=== PATIENT | female | born 1975 | race Caucasian/White ===

== ENCOUNTER → 2016-05-01 | Outpatient (CLI) | payer BC ==
--- NOTE | 2016-05-01 10:20 | REPMRS ---
Patient History The patient states she had a clinical breast exam in Family history of breast cancer in 3 paternal aunts, breast cancer in maternal aunt, and breast cancer in paternal grandmother. Benign excisional biopsy of the left breast, 2001. Benign excisional biopsy of the right breast, 2001. Digital Woman Screen Mammo: May 01, 2016 - Exam #: [id number] Bilateral CC and MLO view(s) were taken. Technologist: Dotty Singh, Technologist No prior studies available for comparison. FINDINGS: The breast tissue is heterogeneously dense. This may lower the sensitivity of mammography. The visualized implant margins are smooth. Breast parenchymal density pattern is essentially symmetric. No dominant mass, clustered microcalcification, or archetectural distortion is evident on either side. ASSESSMENT: BI-RADS/ACR category 2 mammogram. Benign finding(s). Recommendation Routine screening mammogram of both breasts in 1 year (for women over age 40). Electronically Signed By: Lonnie De Jesus MD 05/01/16 8213
== END ==
LOC: M WHC 07:44
PROVIDERS: ATTEND Advanced Practice Midwife
DX: Z12.31 Encounter for screening mammogram for malignant neoplasm of breast (principal); Z80.3 Family history of malignant neoplasm of breast

== ENCOUNTER → 2016-05-02 | Outpatient (CLI) | payer BC ==
[2016-05-02 13:14] LABS: ANION GAP 5 MEQ/L (8-16); BLOOD UREA NITROGEN 7 MG/DL (7-18); CALCIUM LEVEL 9.9 MG/DL (8.5-10.1); CARBON DIOXIDE LEVEL 32 MEQ/L (21-32); CHLORIDE LEVEL 104 MEQ/L (98-107); CREATININE FOR GFR 0.87 MG/DL (0.55-1.02); GLOMERULAR FILTRATION RATE > 60.0 (>58); GLUCOSE, FASTING 131 MG/DL (70-105); SODIUM LEVEL 141 MEQ/L (136-145)
[2016-05-02 13:15] LABS: FOLATE > 24.0 NG/ML (>5.4); POTASSIUM SERUM 5.8 MEQ/L (3.5-5.1); VITAMIN B12 LEVEL 667 PG/ML (247-911)
== END ==
LOC: M WUC 08:59
PROVIDERS: ATTEND Physician Assistant Medical
DX: D64.9 Anemia, unspecified (principal); I10 Essential (primary) hypertension

== ENCOUNTER → 2016-05-20 | Outpatient (CLI) | payer BC ==
[2016-05-20 20:31] LABS: ANION GAP 7 MEQ/L (8-16); BLOOD UREA NITROGEN 9 MG/DL (7-18); CALCIUM LEVEL 9.7 MG/DL (8.5-10.1); CARBON DIOXIDE LEVEL 29 MEQ/L (21-32); CHLORIDE LEVEL 106 MEQ/L (98-107); CREATININE FOR GFR 0.77 MG/DL (0.55-1.02); GLOMERULAR FILTRATION RATE > 60.0 (>58); GLUCOSE, FASTING 97 MG/DL (70-105); POTASSIUM SERUM 4.8 MEQ/L (3.5-5.1); SODIUM LEVEL 142 MEQ/L (136-145)
== END ==
LOC: M WUC 17:20
PROVIDERS: ATTEND Physician Assistant Medical
DX: R00.0 Tachycardia, unspecified (principal)

== ENCOUNTER → 2016-10-04 | Outpatient (CLI) | payer BC, OTHER ==
[2016-10-04 19:49] LABS: BASO # 0.1 K/mm3 (0.0-0.2); EOS # 0.2 K/mm3 (0.0-0.50); EOS % 2.5 % (0.0-3.0); LARGE UNSTAINED CELL # 0.1 K/mm3 (0.0-0.4); LARGE UNSTAINED CELL % 1.8 % (0.0-4.0); LYMPH # 0.8 K/mm3 (1.5-4.5); LYMPH % 10.1 % (24.0-44.0); MEAN CORPUSCULAR HEMOGLOBIN 36.3 pg (27.0-33.0); MEAN CORPUSCULAR HGB CONC 34.6 g/dl (32.0-36.5); MEAN CORPUSCULAR VOLUME 104.9 fl (80.0-96.0); MONO # 0.5 K/mm3 (0.0-0.8); NEUTROPHILS # 5.9 K/mm3 (1.8-7.7); NEUTROPHILS % 77.5 % (36.0-66.0); PLATELET COUNT, AUTOMATED 365 k/mm3 (150-450); RED CELL DISTRIBUTION WIDTH 11.7 % (11.5-14.5); WHITE BLOOD COUNT 7.7 K/mm3 (4.0-10.0)
[2016-10-04 20:03] LABS: ALBUMIN 3.9 GM/DL (3.2-5.2); ALBUMIN/GLOBULIN RATIO 1.39 (1.00-1.93); ALKALINE PHOSPHATASE 84 U/L (45-117); ALT/SGPT 29 U/L (12-78); ANION GAP 6 MEQ/L (8-16); AST/SGOT 31 U/L (15-37); BILIRUBIN,TOTAL 0.6 MG/DL (0.2-1.0); BLOOD UREA NITROGEN 8 MG/DL (7-18); CARBON DIOXIDE LEVEL 28 MEQ/L (21-32); CHLORIDE LEVEL 105 MEQ/L (98-107); CREATININE FOR GFR 0.75 MG/DL (0.55-1.02); GLOMERULAR FILTRATION RATE > 60.0 (>58); GLUCOSE, FASTING 86 MG/DL (70-105); POTASSIUM SERUM 4.5 MEQ/L (3.5-5.1); SODIUM LEVEL 139 MEQ/L (136-145); TOTAL PROTEIN 6.7 GM/DL (6.4-8.2)
--- NOTE | 2016-10-05 09:58 | REP ---
AP PELVIS: 10/04/2016. Clinical history: Right posterior buttock injury. Evaluate for any bony abnormality. Findings: No comparison. Pelvic ring intact. SI joints, sacral ala and foramina symmetric and normal. Interbody cages at the L5-S1 level are noted. Sclerosis around them suggest they may have been present for awhile. There is slight disc space narrowing on the left with rim osteophytes at both femoral heads, larger left than right. Sclerosis acetabular roof with subchondral cyst on the left. Pubic rami, symphysis pubis and iliac wings intact. There is no evidence of fracture or destructive lesion of the hips. Impression: 1. Some degenerative changes of the hips, left greater than right and with prior lumbar fusion at L5-S1 with interbody cages. No visible fracture. Signed by Migue Loco MD 10/05/2016 05:55 P
== END ==
LOC: M WUC 15:35 → MERGE 15:35
PROVIDERS: ATTEND Physician Assistant
DX: S70.01XA Contusion of right hip, initial encounter (principal); R60.0 Localized edema; X58.XXXA Exposure to other specified factors, initial encounter; Y93.9 Activity, unspecified; Y92.9 Unspecified place or not applicable; Y99.8 Other external cause status; Z98.1 Arthrodesis status

== ENCOUNTER → 2016-12-10 | Outpatient (REF) | payer OTHER | LOC: M LAB REF 17:07 | PROVIDERS: ATTEND Obstetrics & Gynecology | DX: Z12.4 Encounter for screening for malignant neoplasm of cervix (principal); R87.612 Low grade squamous intraepithelial lesion on cytologic smear of cervix (LGSIL) ==

== ENCOUNTER → 2016-12-16 | Outpatient (CLI) | payer BC ==
--- NOTE | 2016-12-17 07:49 | REP ---
Clinical: Pelvic pain and abnormal uterine bleeding . Technique: Transabdominal pelvic ultrasound followed by transvaginal examination for better evaluation of the endometrium and adnexa with color Doppler evaluation of the ovaries. Findings: Bladder is unremarkable and measures 13.3 x 11.7 x 7.0 cm. Normal retroflexed uterus measures 8.0 x 4.9 x 5.7 cm . The endometrial complex measures 8.4 mm thickness. No discrete uterine or endometrial abnormalities are appreciated. Bilateral ovaries are normal in appearance and vascularity without evidence for torsion. Right ovary measures 2.8 x 2.3 x 2.2 cm ; R I = 0.59 . Left ovary measures 3.0 x 1.6 x 1.5 cm ; R I = 0.52 . No pelvic fluid or adnexal mass lesion . Impression: 1. Normal pelvic ultrasound. Retroflexed uterus. Signed by Cesar Hansen MD 12/17/2016 07:39 A
== END ==
LOC: M SMT 14:22
PROVIDERS: ATTEND Obstetrics & Gynecology
DX: R10.2 Pelvic and perineal pain (principal); N92.1 Excessive and frequent menstruation with irregular cycle; N85.4 Malposition of uterus

== ENCOUNTER → 2017-01-15 | Outpatient (REF) | payer OTHER | LOC: M LAB REF 14:48 | PROVIDERS: ATTEND Obstetrics & Gynecology | DX: N92.0 Excessive and frequent menstruation with regular cycle (principal); N87.0 Mild cervical dysplasia ==

== ENCOUNTER 2017-03-06 05:43 | Day surgery (SDC) | payer BC, OTHER ==
[2017-03-06] MEDS ORDERED: LIDOCAINE 1% MDV 20ML VIAL SQ (06:00)
[2017-03-06 06:26] LABS: HEMATOCRIT 44.6 % (36.0-47.0); HEMOGLOBIN 15.3 g/dl (12.0-16.0); MEAN CORPUSCULAR HEMOGLOBIN 35.1 pg (27.0-33.0); MEAN CORPUSCULAR HGB CONC 34.3 g/dl (32.0-36.5); MEAN CORPUSCULAR VOLUME 102.3 fl (80.0-96.0); PLATELET COUNT, AUTOMATED 314 10^3/uL (150-450); RED BLOOD COUNT 4.36 10^6/uL (4.00-5.40); RED CELL DISTRIBUTION WIDTH 12.3 % (11.5-14.5); WHITE BLOOD COUNT 5.7 10^3/uL (4.0-10.0)
[2017-03-06] MEDS: LR 1,000 ML IV ×4 (06:28→18:15)
[2017-03-06 06:42] LABS: CONTROL LINE HCG INT CTR LINE PRESENT; HCG, SERUM QUALITATIVE NEGATIVE (NEGATIVE)
[2017-03-06] MEDS ORDERED: ROCURONIUM BROMIDE 50 MG/5 ML VIAL As Ordered ×2 (07:13→08:23)
[2017-03-06] MEDS ORDERED: fentaNYL 250 MCG/5 ML INJECTION (J3010) As Ordered (07:13)
[2017-03-06] MEDS ORDERED: MIDAZOLAM INJ 2 MG/2 ML VIAL (J2250) As Ordered (07:13)
[2017-03-06] MEDS ORDERED: LIDOCAINE 2% INJ 100 MG/5 ML SDV (FOR ANES.) As Ordered (07:13)
[2017-03-06] MEDS ORDERED: PROPOFOL 200 MG/20 ML VIAL As Ordered (07:13)
[2017-03-06] MEDS ORDERED: ePHEDrine SULFATE 25 MG/5 ML(5MG/ML) SYRINGE As Ordered (07:58)
[2017-03-06] MEDS ORDERED: dexameTHASONE 4 MG/ML 1ML VIAL (J1100) As Ordered (08:00)
[2017-03-06] MEDS: BUPIVACAINE HCL 0.25% 30 ML VIAL As Ordered (08:05)
[2017-03-06] MEDS ORDERED: GLYCOPYRROLATE INJ 0.2 MG/ML 2 ML VIAL As Ordered ×2 (08:06)
[2017-03-06] MEDS ORDERED: NEOSTIGMINE 10 MG/10 ML VIAL (J2710) As Ordered (08:06)
[2017-03-06] MEDS ORDERED: ONDANSETRON 4MG/2ML VIAL (J2405) As Ordered (08:07)
[2017-03-06] MEDS ORDERED: METOCLOPRAMIDE INJ 10MG/2ML VIAL (J2765) As Ordered (08:07)
[2017-03-06] MEDS ORDERED: KETOROLAC 60 MG/2 ML VIAL (J1885) As Ordered (08:07)
[2017-03-06] MEDS ORDERED: MORPHINE 10 MG/ML 1ML VIAL As Ordered (08:50)
[2017-03-06] MEDS: METHYLENE BLUE 0.5% (5MG/ML) 10 ML AMP (PROVAYBLUE)(Q9968 PER 1MG) As Ordered (09:55)
[2017-03-06] MEDS ORDERED: fentaNYL 100 MCG/2 ML INJECTION (J3010) IV (10:15)
[2017-03-06] MEDS ORDERED: PERCOCET 5MG/325MG TAB PO ×2 (10:15)
[2017-03-06] MEDS ORDERED: HYDROmorphone HCL 1 MG/ML SYRINGE (J1170) IV (10:15)
[2017-03-06] MEDS ORDERED: zolPIDEM TARTRATE 10MG TAB PO (10:15)
[2017-03-06] MEDS ORDERED: ONDANSETRON 4MG/2ML VIAL (J2405) IV (10:15)
[2017-03-06] MEDS: PERCOCET 5MG/325MG TAB PO ×3 (12:16→21:37)
[2017-03-06] MEDS: PROMETHAZINE INJ 25 MG/ML VIAL (J2550) IV (13:17)
[2017-03-06] MEDS: KETOROLAC 30 MG/ML VIAL (J1885) IV ×2 (14:56→21:37)
[2017-03-06] MEDS: MORPHINE 4 MG/ML 1ML SYRINGE IV ×2 (14:57→19:32)
[2017-03-07] MEDS: zolPIDEM TARTRATE 5 MG TAB PO (00:17)
[2017-03-07] MEDS: LR 1,000 ML IV ×2 (02:15→10:31)
[2017-03-07] MEDS: KETOROLAC 30 MG/ML VIAL (J1885) IV ×2 (03:53→09:07)
[2017-03-07 06:26] LABS: HEMATOCRIT 31.5 % (36.0-47.0); MEAN CORPUSCULAR HEMOGLOBIN 35.4 pg (27.0-33.0); MEAN CORPUSCULAR HGB CONC 33.3 g/dl (32.0-36.5); MEAN CORPUSCULAR VOLUME 106.1 fl (80.0-96.0); PLATELET COUNT, AUTOMATED 210 10^3/uL (150-450); RED BLOOD COUNT 2.97 10^6/uL (4.00-5.40); RED CELL DISTRIBUTION WIDTH 12.4 % (11.5-14.5); WHITE BLOOD COUNT 10.9 10^3/uL (4.0-10.0)
[2017-03-07 06:32] LABS: HEMOGLOBIN 10.5 g/dl (12.0-16.0)
[2017-03-07] MEDS: PERCOCET 5MG/325MG TAB PO (09:01)
[2017-03-07] MEDS: MORPHINE 4 MG/ML 1ML SYRINGE IV (11:19)
== END 2017-03-07 11:45 | disposition home or self-care (01) ==
LOC: M SDC 05:43 → M PED 10:40
DX: D25.2 Subserosal leiomyoma of uterus (principal); I10 Essential (primary) hypertension; M54.9 Dorsalgia, unspecified; F17.210 Nicotine dependence, cigarettes, uncomplicated; Z88.2 Allergy status to sulfonamides; Z79.899 Other long term (current) drug therapy
CPT/HCPCS: 58571

== ENCOUNTER → 2017-06-18 | Outpatient (CLI) | payer BC | LOC: M WHC 14:27 | DX: Z12.31 Encounter for screening mammogram for malignant neoplasm of breast (principal) | CPT/HCPCS: 77067 ==

== ENCOUNTER 2021-02-12 08:26 | Emergency (ER) | payer BC, OTHER ==
[~2021-02-12] VITALS: Ht 172.7 cm; Wt 74.2 kg
[~2021-02-12 08:26] MED LIST: IBUPOTC PO; METO25TA4 PO; MULT1TAB10 PO; OXYC1TAB23 PO; VITA-108
--- OUTSIDE RECORDS SUMMARY | 2021-02-12 08:35 | CCD ---
Author Author [facility] Organization [facility] Address Unknown Phone Unavailable Care Team Providers Care Well Head Pumper Name Role Phone Isaak FINK. CLINICAL SYSTEMS ANALYST STEPHANE Unavailable [phone] DANAE, A. CLINICAL SYSTEMS ANALYST STEPHANE Unavailable [phone] DANAE, A. CLINICAL SYSTEMS ANALYST STEPHANE Unavailable [phone] DANAE, A. CLINICAL SYSTEMS ANALYST STEPHANE Unavailable [phone] DANAE, A. CLINICAL SYSTEMS ANALYST STEPHANE Unavailable [phone] DANAE, A. CLINICAL SYSTEMS ANALYST STEPHANE Unavailable [phone] DANAE, A. CLINICAL SYSTEMS ANALYST STEPHANE Unavailable [phone] DANAE, A. CLINICAL SYSTEMS ANALYST STEPHANE Unavailable [phone] DANAE, A. CLINICAL SYSTEMS ANALYST STEPHANE Unavailable [phone] DANAE, A. CLINICAL SYSTEMS ANALYST STEPHANE Unavailable [phone] DANAE, A. CLINICAL SYSTEMS ANALYST STEPHANE Unavailable [phone] DANAE, A. CLINICAL SYSTEMS ANALYST STEPHANE Unavailable [phone] DANAE, A. CLINICAL SYSTEMS ANALYST STEPHANE Unavailable [phone] DANAE, A. CLINICAL SYSTEMS ANALYST STEPHANE Unavailable [phone] DANAE, A. CLINICAL SYSTEMS ANALYST STEPHANE Unavailable [phone] Isaak FINKJessica [facility] STEPHANE Unavailable [phone] Re-disclosure Warning The records that you are about to access may contain information from federally-assisted alcohol or drug abuse programs. If such information is present, then the following federally mandated warning applies: This information has been disclosed to you from records protected by federal confidentiality rules (42 CFR part 2). The federal rules prohibit you from making any further disclosure of this information unless further disclosure is expressly permitted by the written consent of the person to whom it pertains or as otherwise permitted by 42 CFR part 2. A general authorization for the release of medical or other information is NOT sufficient for this purpose. The Federal rules restrict any use of the information to criminally investigate or prosecute any alcohol or drug abuse patient.The records that you are about to access may contain highly sensitive health information, the redisclosure of which is protected by Article 27-F of the [facility] Public Health law. If you continue you may have access to information: Regarding HIV / AIDS; Provided by facilities licensed or operated by the [facility] Office of Mental Health; or Provided by the [facility] Office for People With Developmental Disabilities. If such information is present, then the following [facility] mandated warning applies: This information has been disclosed to you from confidential records which are protected by state law. State law prohibits you from making any further disclosure of this information without the specific written consent of the person to whom it pertains, or as otherwise permitted by law. Any unauthorized further disclosure in violation of state law may result in a fine or assisted sentence or both. A general authorization for the release of medical or other information is NOT sufficient authorization for further disc losure. Family History Family Member Name Family Member Gender Family Member Status Date o f Status Description Data Source(s) Unknown Unknown Problem [facility] ([facility]) daughter Unknown Unknown Problem [facility] ([facility]) Unknown Unknown Problem [facility] ([facility]) Unknown Unknown Problem [facility] ([facility]) Unknown Unknown Problem [facility] ([facility], ) Unknown Unknown Problem [facility] ([facility], ) m aunt and p aunt Unknown Unknown Problem [facility] ([facility]) Encounters Encounter Providers Location Date Indications Data Source(s ) Outpatient Attender: STEPHANE FINK 01/30 07:43:28 AM EST - 02/12/2021 08:08:32 AM EST [facility] ([facility] ) Immunizations Vaccine Date Status Description Data Source(s) COVID-19 VACCINE Moderna 02/07/2021 12:00:00 AM EST completed [facility] Vaccine Series Complete: YESThis Data wa s Submitted to [facility] Via [employer]. Medications Medication Brand Name Start Date Product Form Dose Route Admi nistrative Instructions Pharmacy Instructions Status Indications Reaction Description Data Source(s) 100 mcg/0.5 mL 02/07/2021 12:00:00 AM EST suspension 0 INJECT DIRECTED (BOOSTER DOSE) INJECT DIRECTED (BOOSTER DOSE) SOLD: 02/07/2021 [facility] Insurance Providers Payer name Policy type / Coverage type Policy ID Covered alliance party ID Covered alliance party's relationship to simons Policy Simons Plan Information [facility] [id number] 2 [id number] [employer] [employer] [id number] [facility] [id number] 2 [id number] [employer] DIV [id number] [facility] Commercial Insurance Co. [id number] Self [id number] [facility] [id number] 2 [id number] [facility] Health Maintenance Organization (HMO) [id number] Family Dependent [id number] [employer] [id number] [id number] [facility] Health Maintenance Organization (HMO) [id number] Family Dependent [id number] [facility] Commercial [id number] [facility] [id number] 2 [id number] [facility] DIV [id number] [facility] Commercial [id number] Family Dependent [id number] [employer] -O [id number] 01 [id number] [facility] O [id number] S [id number] [facility] Commercial [id number] Family Dependent [facility] Health Maintenance Organization (HMO) [id number] Family Dependent [facility] Health Maintenance Organization (HMO) [id number] Family Dependent [employer] O [id number] P [id number] [facility] Health Maintenance Organization (HMO) [id number] Family Dependent [id number] [facility] Health Maintenance Organization (HMO) [id number] Family Dependent [id number] [facility] Health Maintenance Organization (HMO) [id number] Family Dependent [id number] Problems, Conditions, and Diagnoses No Information Surgeries/Procedures No Information Results No Information Social History No Information
[2021-02-12] MEDS ORDERED: NS 1,000 ML IV ONE (12:10)
[2021-02-12 12:49] LABS: BASO # 0.1 10^3/uL (0.0-0.2); BASO % 0.9 % (0.0-1.0); EOS # 0.2 10^3/uL (0.0-0.5); EOS % 1.7 % (0.0-3.0); HEMOGLOBIN 13.5 g/dl (12.0-15.5); LYMPH # 1.2 10^3/uL (1.5-5.0); LYMPH % 13.5 % (24.0-44.0); MEAN CORPUSCULAR HEMOGLOBIN 34.9 pg (27.0-33.0); MEAN CORPUSCULAR HGB CONC 33.8 g/dl (32.0-36.5); MEAN CORPUSCULAR VOLUME 103.4 fl (80.0-96.0); MONO # 0.8 10^3/uL (0.0-0.8); MONO % 8.3 % (2.0-8.0); NEUTROPHILS # 6.8 10^3/uL (1.5-8.5); NEUTROPHILS % 75.4 % (36.0-66.0); PLATELET COUNT, AUTOMATED 323 10^3/uL (150-450); RED BLOOD COUNT 3.87 10^6/uL (4.00-5.40)
[2021-02-12 13:13] LABS: ERYTHROCYTE SEDIMENTATION RATE 7 mm/hr (0-20)
[2021-02-12 13:17] LABS: ALT/SGPT 23 U/L (12-78); BILIRUBIN,DIRECT 0.2 MG/DL (0.0-0.2); BILIRUBIN,TOTAL 0.7 MG/DL (0.2-1.0); C REACTIVE PROTEIN QUANTITATIV 0.35 MG/DL (0.00-0.30); LIPASE 65 U/L (73-393); TOTAL PROTEIN 6.9 GM/DL (6.4-8.2)
[2021-02-12 14:57] LABS: MONO SCRN NEGATIVE (NEGATIVE)
[2021-02-12] MEDS ORDERED: ACETAMINOPHEN 325 MG TAB PO ONE (15:30)
[2021-02-12] MEDS ORDERED: KETOROLAC 30 MG/ML 1ML VIAL IV ONE (17:45)
[2021-02-12 17:51] LABS: APPEARANCE, CSF CLEAR (CLEAR); COLOR, CSF COLORLESS (COLORLESS); CSF TUBE# CELL CNT TUBE 1
[2021-02-12 17:58] LABS: APPEARANCE, CSF CLEAR (CLEAR); COLOR, CSF COLORLESS (COLORLESS); CSF TUBE# CELL CNT TUBE 4
[2021-02-12 18:19] LABS: CSF TUBE# GLU TUBE 2; CSF TUBE# TP TUBE 2; GLUCOSE CSF 55 MG/DL (40-75); TOTAL PROTEIN,CSF 34 MG/DL (15-45)
[2021-02-12 20:23] LABS: RSV AMPLIFICATION NEGATIVE (NEGATIVE)
[2021-02-12 20:30] VITALS: BP 128/66
[2021-02-12] MEDS ORDERED: KETO10TAB PO (20:31)
--- NOTE | 2021-02-13 08:07 | REP ---
PROCEDURE NAME: FLUORO GUID FOR NEEDLE PLACEMT SEDATION: None CLINICAL INFORMATION: meningeal signs on PE. PHYSICIAN: Shawna Kraft PROCEDURE DESCRIPTION: The procedure was performed by OSCAR Le, under the direct supervision of Dr. Bailey. The risks and benefits of the procedure were explained to the patient and an informed consent was obtained both verbally and written. Directly prior to the start of the procedure a formal time-out was completed in the procedure room. The L2-3 interspace was localized using fluoroscopic guidance. The skin was prepped and draped in a sterile fashion. Five 1 % lidocaine 10 milligrams/milliliter was used as a local anesthetic. Using fluoroscopic guidance a 22 gauge spinal needle was inserted and advanced without significant difficulty in to the cerebral spinal space at the L2-3 interspinous level. Clear freely flowing cerebral spinal fluid was retrieved. A total of 11.5 mL of clear cerebral spinal fluid was withdrawn gently. The needle was withdrawn. Cerebral spinal fluid was submitted to the lab for routine analysis. 0.1 minutes of fluoroscopy time was utilized for this procedure. Some fluoroscopic images are performed with last image hold technology. These images require no additional radiation. The patient tolerated the procedure well and there were no immediate complications. After the appropriate amount of monitored convalescence the patient was discharged back to the unit. ESTIMATED BLOOD LOSS: Less than 1 mL COMPLICATIONS: None CONCLUSION: Successful lumbar puncture and CSF retrieval. <Electronically signed by Shawna Kraft > 02/13/21 [id number] <Electronically signed by Neymar Bailey > 02/13/21 [id number]
== END 2021-02-12 22:02 | disposition home or self-care (01) ==
LOC: M ED 08:26
DX: L04.9 Acute lymphadenitis, unspecified (principal); T50.Z95A Adverse effect of other vaccines and biological substances, initial encounter; I10 Essential (primary) hypertension; F17.200 Nicotine dependence, unspecified, uncomplicated; Z79.899 Other long term (current) drug therapy; Z88.2 Allergy status to sulfonamides
CPT/HCPCS: 62329; 77002; 80047; 80076; 82550; 82945; 83605; 83690; 84157; 85025; 85652; 86140; 86308; 87040; 87070; 87205; 87631; 89050; 96361; 96374; 99284; J1885

== ENCOUNTER → 2023-11-27 | Outpatient (CLI) | payer OTHER ==
[~2023-11-27] MED LIST changes: +B-122500 PO; +EVEN500C7 PO; +KETO10TAB PO; +MELA10CA6 PO; +MULT1CHW29 PO
== END ==
LOC: M WHC 14:17
PROVIDERS: ATTEND Internal Medicine
DX: Z12.31 Encounter for screening mammogram for malignant neoplasm of breast (principal)

== ENCOUNTER → 2024-05-06 | Outpatient (CLI) | payer OTHER ==
[~2024-05-06] MED LIST changes: +PROHANCE 279.3MG/ML 15ML VIAL ONE
== END ==
LOC: M PLAIMG 13:10
PROVIDERS: ATTEND Internal Medicine
DX: R92.8 Other abnormal and inconclusive findings on diagnostic imaging of breast (principal); R92.30 Dense breasts, unspecified
CPT/HCPCS: A9576; C8908

== ENCOUNTER → 2024-07-12 | Outpatient (CLI) | payer OTHER ==
[~2024-07-12] MED LIST changes: -PROHANCE 279.3MG/ML 15ML VIAL ONE
== END ==
LOC: M WHC 12:32
PROVIDERS: ATTEND Nurse Practitioner Family
DX: N63.12 Unspecified lump in the right breast, upper inner quadrant (principal)
CPT/HCPCS: 76642; 77065; G0279

== ENCOUNTER → 2025-01-13 | Outpatient (CLI) | payer OTHER | LOC: M WHC 12:00 | PROVIDERS: ATTEND Registered Nurse | DX: Z12.31 Encounter for screening mammogram for malignant neoplasm of breast (principal) ==